=== PATIENT | female | born 1975 | race Caucasian/White ===

== ENCOUNTER 2016-10-21 09:39 | Emergency (ER) | payer SELFPAY ==
[~2016-10-21] VITALS: Ht 157.5 cm; Wt 98.8 kg
[2016-10-21] MEDS ORDERED: ONDANSETRON 2 MG/ML (Z0FRAN) 2 ML VIAL IV ONE (10:00)
[2016-10-21] MEDS ORDERED: SODIUM CHLORIDE FLUSH 10 ML SYR IV PRN (10:00)
[2016-10-21 10:19] LABS: BASOPHILS % (AUTO) 0 % (0-2); EOSINOPHILS # (AUTO) 0.1 10^3uL; EOSINOPHILS % (AUTO) 1 % (0-4); LYMPHOCYTES # (AUTO) 1.7 X10^3; MEAN CORPUSCULAR HGB CONC 33.8 g/dL (31.0-37.0); MEAN PLATELET VOLUME 11.1 FL (6.0-9.5); MONOCYTES # (AUTO) 0.4 X10^3; MONOCYTES % (AUTO) 6 % (3-11); NEUTROPHILS # (AUTO) 5.2 X10^3; NEUTROPHILS % (AUTO) 70 % (51-67); PLATELET COUNT 280 10^3uL (150-450); WHITE BLOOD COUNT 7.42 10^3uL (4.0-11.0)
[2016-10-21 10:21] LABS: BILIRUBIN,URINE Negative (Negative); CLARITY,URINE Clear; COLOR,URINE Yellow; GLUCOSE, URINE (UA) Negative (Negative); LEUKOCYTE ESTERASE ,URINE Negative (Negative); PH,URINE 5.5 (5.0 - 8.0); UROBILINOGEN,URINE 0.2 mg/dL (0.2-1.0)
[2016-10-21 10:24] LABS: MEAN CORPUSCULAR HEMOGLOBIN 26.2 PG (26.0-34.0); MEAN CORPUSCULAR VOLUME 78 FL (80-100)
[2016-10-21 10:29] LABS: CREATINE KINASE 55 U/L (30-135)
[2016-10-21 10:30] LABS: ALBUMIN 4.4 g/dL (3.4-5.0); ANION GAP 14.6 MEQ/L (3-15); CALCULATED IONIZED CALCIUM 3.9 mg/dL (3.8-4.6); TOTAL PROTEIN 7.9 g/dL (6.4-8.5)
--- NOTE | 2016-10-21 11:38 | NUR ---
PT WAS ABLE TO AMBULATE IN BAL WITHOUT DIFFICULTY, DENIED ANY DIZZINESS WHILE WALKING.
[2016-10-21 11:39] VITALS: BP 119/84
== END 2016-10-21 11:47 | disposition home or self-care (01) ==
LOC: ED 09:41
DX: E86.0 Dehydration (principal); R42 Dizziness and giddiness
CPT/HCPCS: 36415; 80053; 81003; 82550; 82553; 84443; 84484; 85025; 86140; 93005; 96361; 96374; 99284; J2405; J7030; 93010; 99281